=== PATIENT | male | born 1960 | race Caucasian/White ===

== ENCOUNTER → 2018-03-06 00:05 | Outpatient (CLI) | payer MEDICAID, SELFPAY ==
--- NOTE | 2018-03-06 07:01 | DI.REPORT_ITS ---
SYMPTOM/DIAGNOSIS: PAIN RUQ, R10.11 ABDOMINAL ULTRASOUND: Routine examination was performed. The aorta and IVC are unremarkable. There is a 1.7 x 1.7 x 1.0 cm subcapsular cyst in the right lobe. The liver is otherwise unremarkable. The gallbladder is contracted. The patient is scheduled to return on 03/07/18 for limited evaluation of the gallbladder. No biliary ductal dilatation is seen. The pancreas, kidneys and spleen are unremarkable. IMPRESSION: 1. 1.7 cm hepatic cyst 2. Contracted gallbladder. The patient will return on 03/07/18 for limited gallbladder sonographic evaluation.
== END ==
PROVIDERS: PCP Nurse Practitioner; Visit Provider Nurse Practitioner
DX: R10.11 Right upper quadrant pain (principal); K76.89 Other specified diseases of liver; K82.0 Obstruction of gallbladder
CPT/HCPCS: 76700

== ENCOUNTER → 2018-03-07 00:05 | Outpatient (CLI) | payer MEDICAID, SELFPAY ==
--- NOTE | 2018-03-07 07:13 | DI.REPORT_ITS ---
SYMPTOM/DIAGNOSIS: RUQ PAIN R10.11 LIMITED ABDOMEN ULTRASOUND: Comparison is made with 06 March 2018. The patient returned today for evaluation of the gallbladder since he was not fasting on the previous exam. No gallstones, gallbladder wall thickening or biliary dilatation is seen. IMPRESSION: Normal appearing gallbladder.
== END ==
PROVIDERS: PCP Nurse Practitioner; Visit Provider Nurse Practitioner
DX: R10.11 Right upper quadrant pain (principal)
CPT/HCPCS: 76705

== ENCOUNTER 2021-04-21 03:08 | Outpatient (CLI) | payer OTHER, SELFPAY ==
[2021-04-21 11:04] LABS: Abs Immature Grans 0.02 10^3/uL (0.0-0.06); Absolute Basophil Count 0.04 10^3/uL (0.0-0.2); Absolute Eosinophil Count 0.39 10^3/uL (0.0-0.7); Absolute Lymphocyte Count 1.53 10^3/uL (1.2-3.4); Absolute Monocyte Count 0.39 10^3/uL (0.1-0.8); Absolute Neutrophil Count 2.91 10^3/uL (1.2-6.7); Basophils % 0.8; Eosinophils % 7.4; HGB 14.7 g/dL (13.5-17.5); Immature Grans % 0.4; MCH 29.2 pg (27.0-33.0); MCHC 32.7 % (32.0-36.0); MCV 89.5 fL (80-95); MPV 10.3 fL (8.0-11.0); Monocytes % 7.4; Nucleated RBC 0 %; Platelet Count 232 10^3/uL (130-400); RBC 5.03 10^6/uL (4.36-5.78); RDW 16.5 % (11.8-14.1); RDW-SD 53.3 fL; WBC 5.28 10^3/uL (4.4-10.8)
[2021-04-21 11:34] LABS: Hemoglobin A1C 5.4 % (<5.7)
[2021-04-21 12:50] LABS: ALT 13 U/L (16-63); AST 16 U/L (15-37); Albumin 4.4 g/dL (3.4-5.0); Alkaline Phosphatase 125 U/L (46-116); Anion Gap 11.1 mmol/L (3-11); BUN 10 mg/dL (7-18); CO2 25.9 mmol/L (21.0-32.0); Calcium 8.9 mg/dL (8.5-10.1); Chloride 106 mmol/L (98-107); Glucose 87 mg/dL (74-106); Potassium 4.4 mmol/L (3.5-5.1); Sodium 143 mmol/L (136-145); TSH (W/Ref FT4) 0.76 uIU/mL (0.36-3.74); Total Protein 7.4 g/dL (6.4-8.2); Vitamin B12 287 pg/mL (193-986)
[2021-04-22 12:54] LABS: Total Protein 7.5 g/dL (6.3-8.2)
== END 2021-04-21 03:09 | disposition home or self-care (01) ==
LOC: LBO 03:08
PROVIDERS: Nurse Practitioner Family; PCP Nurse Practitioner; Visit Provider Emergency Medicine
DX: G62.9 Polyneuropathy, unspecified (principal)
CPT/HCPCS: 36415; 80053; 82607; 83036; 84165; 84443; 85025

== ENCOUNTER 2024-02-12 13:46 | Emergency (ER) | payer MEDICARE, SELFPAY ==
--- NOTE | 2024-02-12 13:45 | RT.EKG_ITS ---
APPROVED REPORT Exam: Resting ECG Reason for Exam: chest pain Patient Location: E HR:113 bpm ECG Measurements Heart Rate 113 AXIS NH 152 P 233 QRSd 110 QRS 13 QT 389 T 17 QTc 534 Conclusion Sinus or ectopic atrial tachycardia...P axis (-45,135), rate> 99 Ventricular tachycardia, unsustained...sequence of 3 or more V complexes Prolonged QT interval...QTc >500mS Physician: no stemi
[2024-02-12 13:49] VITALS: BP 176/73; PULSE 74; RESP 16; TEMP 36.8; O2SAT 96
--- NOTE | 2024-02-12 14:15 | DI.RAD_ITS ---
Exam(s) XR SHOULDER RT COMPLETE 2+V EXAM: XR SHOULDER RT COMPLETE 2+V CLINICAL HISTORY: right shoulder and scapula pain. TECHNIQUE: 2D digital imaging was performed. Five views. COMPARISON: CR CHEST 2 VIEWS PA,LAT from 10/12/2017 CR XR CHEST 2V PA LATERAL from 02/12/2024 FINDINGS: BONES: No acute fracture is present. No bony destructive lesion is seen. JOINTS: No dislocation present. SOFT TISSUE: Normal. IMPRESSION: Unremarkable radiographs of the right shoulder. DATA REPOSITORY: RADIATION DOSE DELIVERED:
--- NOTE | 2024-02-12 14:15 | DI.RAD_ITS ---
Exam(s) XR CHEST 2V PA LATERAL EXAM: XR CHEST 2V PA LATERAL CLINICAL HISTORY: right shoulder and scapula pain, r/o chest mass TECHNIQUE: 2D digital imaging was performed. Two views. COMPARISON: CR CHEST 2 VIEWS PA,LAT from 10/12/2017 FINDINGS: HEART: Normal size. Aorta: Not dilated. PULMONARY VASCULATURE: Normal. MEDIASTINUM: Unremarkable. LUNGS: Clear. PLEURAL SPACE: No pleural effusion or pneumothorax. BONE:no evidence of spine or rib fracture. There is curvature of the spine, convex toward the left, which may be represent scoliosis versus patient positioning or muscle spasm. This was not present on the 2018 exam. SOFT TISSUES: Unremarkable. IMPRESSION: No acute abnormality. DATA REPOSITORY: RADIATION DOSE DELIVERED:
--- NOTE | 2024-02-12 14:20 | W.ED.GENAD ---
Discharge Plan Disposition Patient Disposition: Home Condition: Good Discharge Details Clinical Impression: Acute pain of right shoulder Primary Care Provider: Adele Fields ED Provider: Manpreet Collins Home Meds and New Rx's Prescriptions: New cyclobenzaprine 10 mg tablet 10 mg PO TID Qty: 14 0RF lidocaine [Lidoderm] 5 % adhesive patch,medicated 1 patch Topical Q24H Qty: 15 0RF No Action baclofen 10 mg tablet 10 mg PO 6X/DAY Qty: 540 0RF Rx Instructions: six times daily amantadine HCl 100 MG capsule 100 mg PO BID sertraline 50 MG tablet 50 mg PO DAILY carbidopa-levodopa 25-100 mg tablet 1 tab PO .q1.5-2 hrs wa Rx Instructions: 12/27/21 per [facility] [place] take 1/5 -2 hours during waking hours for a total of 10 tablets per day jwo mecobalamin (vitamin B12) 1,000 mcg tablet,chewable 1,000 mcg PO DAILY Rx Instructions: 01/03/22 per [facility] [place] neurology ibuprofen [Advil] 200 mg tablet 200 mg PO DAILY Discharge Instructions Instructions: Shoulder Pain ED Additional Instructions: At this time your x-ray showed no significant abnormality of your shoulder or chest. You do have a notable spasm of your rhomboid muscles attaching to your scapula. Please take the cyclobenzaprine as directed. This may make you slightly sleepy or unbalanced, so please be cautious while on this medication. Please take Tylenol daily for the next few days to help with the inflammation. Apply the Lidoderm patches as directed. If your insurance does not cover the patches, please feel free to get the [id number] version which is slightly cheaper. Please continue to use your heating pad in this area. Please follow-up closely with physical therapy, and contact them at the highlighted number. If you notice any worsening of your symptoms, or any new symptoms such as vomiting, diarrhea, fever, chills, shortness of breath, chest pain, numbness, weakness, or fainting , please return immediately to the emergency department for reevaluation. Please follow up with your primary care provider as soon as possible for reassessment and reevaluation. As always, it was a pleasure participating in your medical care today. Stand Alone Forms: Physical Therapy Referral Discharge Data Discharge Date/Time-TO BE ENTERED AT DEPARTURE: 02/12/24 16:11 HPI General Date/Time Provider Initiated Documentation: 02/12/24 13:58. HPI Narrative: 63-year-old male with past medical history of Parkinson's disease currently on carbidopa levodopa who presents today for evaluation of right shoulder pain. Patient states that for the last few months he has had intermittent right shoulder pain, however he has noticed over the last few days it has become increasingly worse. It seems to come and go on its own. Nothing seems to help improve the pain in particular. He does take baclofen he still has pain in spite of it regularly but this does not improve his symptoms. He describes the pain as a cramping-like sensation that occurs in the space directly between his spine and his shoulder blade. He denies any chest pain or shortness of breath. He denies any head or neck discomfort. He does admit to occasional tingling that will occur in his fourth and fifth digit on the right hand. No other complaints at this time. No other modifying factors. Related Data Home Medications Medication Instructions Recorded Confirmed amantadine HCl 100 mg capsule 100 mg PO BID 04/13/16 02/12/24 sertraline 50 mg tablet 50 mg PO DAILY 04/13/16 02/12/24 baclofen 10 mg tablet 10 mg PO 6X/DAY #540 tabs 07/18/18 02/12/24 carbidopa 25 mg-levodopa 100 mg 1 tab PO .q1.5-2 hrs wa 01/03/22 02/12/24 tablet mecobalamin (vitamin B12) 1,000 1,000 mcg PO DAILY 01/03/22 02/12/24 mcg chewable tablet cyclobenzaprine 10 mg tablet 10 mg PO TID #14 tabs 02/12/24 ibuprofen 200 mg tablet (Advil) 200 mg PO DAILY 02/12/24 02/12/24 lidocaine 5 % topical patch 1 patch topical Q24H #15 ea 02/12/24 (Lidoderm) Previous Rx's Medication Instructions Recorded baclofen 10 mg tablet 10 mg PO 6X/DAY #540 tabs 07/18/18 cyclobenzaprine 10 mg tablet 10 mg PO TID #14 tabs 02/12/24 lidocaine 5 % topical patch 1 patch topical Q24H #15 ea 02/12/24 (Lidoderm) Allergies Allergy/AdvReac Type Severity Reaction Status Date / Time No Known Allergies Allergy Unverified 02/12/24 14:28 General Stated Complaint: Orthopedic YARELI: 4 Review of Systems All systems reviewed & are unremarkable except as noted in HPI and below Exam Narrative Exam Narrative: 1.Const: Well-nourished, Well-developed, appearing stated age 2.Eyes: PERRL, no conjunctival injection, and symmetrical lids. 3.ENT: Atraumatic external nose and ears. Moist MM. Neck: Symmetric, trachea midline, No thyromegaly. 4.CVS: +S1/S2, No murmurs or gallops. Peripheral pulses 2+ and equal in all extremities. Brisk capillary refill in all extremities. 5.RESP: Unlabored respiratory effort. Clear to auscultation bilaterally. No wheezes rales or rhonchi 6.GI: Soft, Nontender/Nondistended, No hepatosplenomegaly. No guarding or rebound. 7.MSK: Normocephalic/Atraumatic, Extremities w/o deformity or ttp No cyanosis or clubbing, mild parkinsonian movements are noted. Patient is able to move upper and lower extremities well without deficit. Mild spasm is noted for rhomboid major and minor as well as levator scapulae. No palpable masses or bony deformity or bony tenderness. No midline cervical or thoracic spine tenderness. 8.Skin: Warm, Dry. No rashes or lesions. 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 Sensation grossly intact, no focal neurologic deficits. Mild parkinsonian movements 10.Psych: (AAO) x3. Appropriate mood and affect Course Vital Signs Vital signs: Vital Signs Temperature 36.8 C 02/12/24 13:49 Pulse 74 02/12/24 13:49 Respiratory Rate 16 02/12/24 13:49 Blood Pressure 176/73 H 02/12/24 13:49 Pulse Oximetry 96 02/12/24 13:49 Temperature 36.8 C 02/12/24 13:49 Temperature Source Temporal Artery Scan 02/12/24 13:49 Pulse 74 02/12/24 13:49 Respiratory Rate 16 02/12/24 13:49 Respiratory Effort Normal 02/12/24 13:59 Blood Pressure 176/73 H 02/12/24 13:49 Blood Pressure Position Sitting 02/12/24 13:49 Pulse Oximetry 96 02/12/24 13:49 Oxygen Delivery Method Room Air 02/12/24 13:49 Oxygen Flow Rate 0 02/12/24 13:49 Pain Level 7 02/12/24 13:59 Medical Decision Making 63-year-old male with past medical history of Parkinson's disease currently on carbidopa levodopa who presents today for evaluation of right shoulder pain. Patient states that for the last few months he has had intermittent right shoulder pain, however he has noticed over the last few days it has become increasingly worse. It seems to come and go on its own. Nothing seems to help improve the pain in particular. He does take baclofen he still has pain in spite of it regularly but this does not improve his symptoms. He describes the pain as a cramping-like sensation that occurs in the space directly between his spine and his shoulder blade. He denies any chest pain or shortness of breath. He denies any head or neck discomfort. He does admit to occasional tingling that will occur in his fourth and fifth digit on the right hand. No other complaints at this time. No other modifying factors. Exam demonstrates notable muscular spasm over the rhomboid major and minor and levator scapula. No other deficits otherwise. EKG was performed and shows no significant abnormality to suggest ACS. Chest x-ray and right shoulder x-ray were ordered which shows no bony mass, or significant abnormality of scapula shoulder or ribs or spine. Patient was given Flexeril, Lidoderm patch, and NSAID therapy. He did have mild to moderate improvement of symptoms with this. At this time I do suspect that there is a notable muscular spasm that occurs on and off secondary to chronic potential parkinsonian movements. No clear evidence of a mass or tumor to suggest the cause of the pain. Will recommend physical therapy, continued intermittent Flexeril Lidoderm patch and NSAID therapy. Will recommend continued further diagnostic evaluation if symptoms do not improve with this therapy over the next 2 weeks. Otherwise patient appears stable, symptoms appear clinically inconsistent with ACS, PE dissection or other life-threatening etiology. Discussed red flags which to return. I have extensively reviewed the treatment plan and discharge instructions with the patient and their family. I have addressed all patient concerns at this time. The patient and family was made aware of what symptoms to monitor for that would warrant a return to the emergency department. Discussed the plan with the patient and family, they demonstrate verbal understanding and agreement with our assessment and plan at this time. The documentation in this chart was dictated using [employer] dictation software. Please excuse any dictation errors. FINDINGS: HEART: Normal size. Aorta: Not dilated. PULMONARY VASCULATURE: Normal. MEDIASTINUM: Unremarkable. LUNGS: Clear. PLEURAL SPACE: No pleural effusion or pneumothorax. BONE:no evidence of spine or rib fracture. There is curvature of the spine, convex toward the left, which may be represent scoliosis versus patient positioning or muscle spasm. This was not present on the 2018 exam. SOFT TISSUES: Unremarkable. IMPRESSION: No acute abnormality FINDINGS: BONES: No acute fracture is present. No bony destructive lesion is seen. JOINTS: No dislocation present. SOFT TISSUE: Normal. IMPRESSION: Unremarkable radiographs of the right shoulder. Quality:SDOH Health Related Social Needs: No Data to Display PFSH All Active Problems Acute pain of right shoulder (Acute) Alteration in cognition (Acute) 07/10/22 Psych Neuro Peripheral neuropathy (Acute) Poor dentition (Chronic 02/25/18) Parkinson disease (Chronic 08/06/08) Depression (Chronic 03/26/18) Adjustment disorder with depressed mood (Chronic 10/23/17) Medical History Parkinson disease Surgical History S/P inguinal hernia repair left, Dr. Vamshi Alexander [facility]oscopy - [facility] [place]07[place]04[place]16) Family History Mother Diabetes Father Neoplasm pancreatic CA Brother No problems noted. Sister No problems noted. Social History Smoking/Tobacco Use Status: Never Smoking risk assessment performed?: Yes Alcohol Intake: current Alcohol Intake frequency: holidays/special occasions only Drug use: Daily Substance use type: does not use Household members: spouse Housing: house current occupation: works at [id number] Working smoke detector in home: Yes Fire extinguisher in home: Yes Carbon monox detector in home: Yes
[2024-02-12] MEDS: Cyclobenzaprine 10 MG TAB PO (14:24)
[2024-02-12] MEDS: Acetaminophen 500 MG TAB 1000 MG PO (14:24)
[2024-02-12] MEDS: Cyclobenzaprine 10 MG TAB, 3 TABS/BTL PO (16:08)
[2024-02-12] MEDS: Lidocaine 5% Patch 1 PATCH TP (16:08)
== END 2024-02-12 16:11 | disposition home or self-care (01) ==
PROVIDERS: Emergency Provider Student in an Organized Health Care Education/Training Program; PCP Nurse Practitioner
DX: M25.511 Pain in right shoulder (principal); R07.89 Other chest pain
CPT/HCPCS: 93005; 99284; 71046; 73030; 93010; 99283

== ENCOUNTER 2025-04-16 16:13 | Outpatient (REF) | payer MEDICARE, SELFPAY ==
[2025-04-16 19:48] LABS: Anion Gap 10.1 mmol/L (3-11); BUN 10 mg/dL (7-18); CO2 26.9 mmol/L (21.0-32.0); Calcium 9.6 mg/dL (8.5-10.1); Calculated LDL 167 mg/dL (<100); Chloride 102 mmol/L (98-107); Cholesterol 245 mg/dL (<200); Estimated GFR 74.50 (mL/min/1.73m2); Glucose 96 mg/dL (74-106); HDL Cholesterol 51 mg/dL (>or=40); Potassium 3.8 mmol/L (3.5-5.1); Sodium 139 mmol/L (136-145); Triglyceride 137 mg/dL (<150)
== END 2025-04-16 16:14 | disposition home or self-care (01) ==
LOC: LBN 16:13
DX: E78.00 Pure hypercholesterolemia, unspecified (principal)
CPT/HCPCS: 80048; 80061